=== PATIENT | male | born 1990 | race Hispanic/Latino ===

== ENCOUNTER 2022-02-03 09:13 | Inpatient (IN) | payer BC ==
[2022-02-03 09:54] LABS: Absolute Lymphocytes (CBC) 1.3 K/uL (0.7-4.9); Hematocrit 45.2 % (39.6-49.0); Lymphocytes % 10.9 % (15.3-44.8); MCV 87.7 fL (80-100); MPV 7.5 fL (7.6-11.3); RBC Red Blood Cell Count 5.16 M/uL (4.33-5.43)
[2022-02-03] MEDS ORDERED: MORPHINE 4 MG/ML SYR ONE ×2 (10:02→12:56)
[2022-02-03] MEDS ORDERED: NA CHLORIDE 0.9% 1,000 ML ONE ×2 (10:03→14:52)
[2022-02-03 10:08] LABS: Potassium 3.8 mmol/L (3.5-5.1)
--- NOTE | 2022-02-03 11:04 | RAD REPORT ---
EXAM DESCRIPTION: CT - Pelvis W/Cont - 02/03/2022 10:43 am CLINICAL HISTORY: Perianal abscess COMPARISON: None. TECHNIQUE: Computed axial tomography of the pelvis was obtained. 50 cc Isovue-300 administered intra venously. All CT scans are performed using dose optimization technique as appropriate and may include automated exposure control or mA/KV adjustment according to patient size. FINDINGS: A 3.5 centimeter abscess to the left of the anus. Stranding within the adjacent fat. No ascites. No evidence of diverticulitis. Small left inguinal hernia contains fat IMPRESSION: 3.5 centimeter perianal abscess
[2022-02-03 11:22] LABS: Protime INR 1.19
[2022-02-03] MEDS ORDERED: Levofloxacin 750mg IV 750 MG/150 ML BAG IV ONE (11:28)
[2022-02-03] MEDS ORDERED: METRONIDAZOLE 500mg IVPB 500 MG/100 ML BAG IV ONE (11:28)
--- NOTE | 2022-02-03 11:28 | EDPHYS ---
Physician Documentation [facility] Name: Tera Zuleta Age: 31 yrs Sex: Male : 1990 Arrival Date: 02/03/2022 Time: 09:16 Bed 11 Private MD: ED Physician Linwood Miller HPI: 02/03 11:28 This 31 yrs old Male presents to ER via Ambulatory with complaints of ms3 Hemorrhoids. 11:28 The patient presents to the emergency department with pain in the rectal area, that is ms3 severe. Onset: The symptoms/episode began/occurred 3 day(s) ago. Context: the patient has no known special context relating to the rectal area complaint(s). Modifying factors: The symptoms are alleviated by nothing, The symptoms are aggravated by movement, sitting position. Associate signs and symptoms: Pertinent negatives: fever, vomiting. Historical: - Allergies: 09:30 PENICILLINS; ap3 - PMHx: 09:30 None; ap3 - Immunization history:: Adult Immunizations up to date. - Social history:: Smoking status: Patient denies any tobacco usage or history of. ROS: 11:28 Constitutional: Negative for fever, and chills. Neck: Negative for injury, pain, and ms3 swelling, Cardiovascular: Negative for chest pain, and palpitations. Respiratory: Negative for shortness of breath, cough, wheezing, and pleuritic chest pain, MS/Extremity: Negative for injury and deformity, Neuro: Negative for headache, weakness, numbness, tingling. 11:28 Abdomen/GI: Positive for rectal pain. 11:28 All other systems are negative. Exam: 11:28 Constitutional: This is a well developed, well nourished patient who is awake, alert, ms3 and in no acute distress. Head/Face: Normocephalic, atraumatic. Neck: Trachea midline, no cervical lymphadenopathy. Supple, full range of motion without nuchal rigidity, or vertebral point tenderness. No Meningismus. Chest/axilla: Normal chest wall appearance and motion. Nontender with no deformity. Cardiovascular: Regular rate and rhythm with a normal S1 and S2. No gallops, murmurs, or rubs. Normal PMI, no JVD. No pulse deficits. Respiratory: Lungs have equal breath sounds bilaterally, clear to auscultation and percussion. No rales, rhonchi or wheezes noted. No increased work of breathing, no retractions or nasal flaring. Skin: Warm, dry with normal turgor. Normal color with no rashes, no lesions, and no evidence of cellulitis. MS/ Extremity: Pulses equal, no cyanosis. Neurovascular intact. Full, normal range of motion. Psych: Awake, alert, with orientation to person, place and time. Behavior, mood, and affect are within normal limits. 11:28 Abdomen/GI: Inspection: abdomen appears normal, Bowel sounds: normal, Palpation: abdomen is soft and non-tender, Rectal exam: swelling, that is moderate, tenderness, that is severe, the exam is chaperoned by the nurse, Left sided perianal abscess. 11:38 ECG was reviewed by the Attending Physician. ms3 Vital Signs: 09:26 BP 163 / 103; Pulse 128; Resp 20; Temp 98.8; Pulse Ox 100% ; Weight 158.76 kg; Height 6 ap3 ft. 1 in. (185.42 cm); Pain 8/10; 10:28 BP 123 / 57; Pulse 113; Resp 16; Pulse Ox 95% on R/A; iw 10:33 BP 121 / 63; Pulse 101; Resp 18; Pulse Ox 96% on R/A; ld1 12:24 BP 124 / 70; Pulse 99; Resp 18; Pulse Ox 97% on R/A; ld1 12:52 BP 138 / 98; Pulse 105; Resp 20; Pulse Ox 97% on R/A; em6 14:00 BP 132 / 88; Pulse 99; Resp 20; Pulse Ox 98% on R/A; em6 15:00 BP 128 / 86; Pulse 94; Resp 18; Pulse Ox 98% on R/A; em6 16:00 BP 124 / 82; Pulse 90; Resp 20; Pulse Ox 98% on R/A; em6 09:26 Body Mass Index 46.18 (158.76 kg, 185.42 cm) ap3 MDM: 09:34 Patient medically screened. ms3 11:28 Differential diagnosis: hemorrhoids, abscess. Data reviewed: vital signs, nurses notes, ms3 lab test result(s), radiologic studies, and as a result, I will admit patient. Counseling: I had a detailed discussion with the patient and/or guardian regarding: the historical points, exam findings, and any diagnostic results supporting the discharge/admit diagnosis, lab results, radiology results, the need for further work-up and treatment in the hospital. ED course: Case discussed with Dr. Hurt and he would like patient admitted to medicine. Discussed case with Ben and he accepts patient on behalf of Dr Hurt.. 02/03 09:36 Order name: CBC with Diff; Complete Time: 10:40 ms3 02/03 09:36 Order name: Urine Microscopic Only ms3 02/03 09:36 Order name: BMP; Complete Time: 10:40 ms3 02/03 10:40 Order name: Blood Culture Adult (2) ms3 02/03 10:40 Order name: Lactate w/ 2H reflex if indic.; Complete Time: 11:39 ms3 02/03 10:40 Order name: Protime (+inr); Complete Time: 11:26 ms3 02/03 10:40 Order name: Ptt, Activated; Complete Time: 11:26 ms3 02/03 10:40 Order name: LFT's; Complete Time: 11:39 ms3 02/03 11:18 Order name: SARS RAPID iw 02/03 11:51 Order name: Hemoglobin A1c ld1 02/03 12:30 Order name: Hemoglobin A1c EDMO 02/03 12:31 Order name: Lipid Profile EDMS 02/03 12:32 Order name: T4 Free EDMS 02/03 12:32 Order name: Thyroid Stimulating Hormone EDMS 02/03 09:56 Order name: CT Pelvis w cont; Complete Time: 11:14 ms3 02/03 12:32 Order name: Urinalysis EDMS 02/03 12:32 Order name: Basic Metabolic Panel EDMS 02/03 12:32 Order name: Basic Metabolic Panel EDMS 02/03 12:32 Order name: CBC with Automated Diff EDMS 02/03 12:32 Order name: CBC with Automated Diff EDMS 02/03 13:33 Order name: Urine Dipstick-Ancillary EDMS 02/03 13:49 Order name: Urine Culture EDMS 02/03 14:09 Order name: Vancomycin Level Trough EDMS 02/03 17:03 Order name: Glucose, Ancillary Testing EDMS 02/03 09:36 Order name: IV Saline Lock; Complete Time: 09:47 ms3 02/03 09:36 Order name: Labs collected and sent; Complete Time: 09:47 ms3 02/03 09:36 Order name: Urine Dipstick-Ancillary (obtain specimen); Complete Time: 13:33 ms3 02/03 10:40 Order name: EKG; Complete Time: 10:41 ms3 02/03 10:40 Order name: Accucheck; Complete Time: 11:32 ms3 02/03 10:40 Order name: Cardiac monitoring; Complete Time: 10:45 ms3 02/03 10:40 Order name: EKG - Nurse/Tech; Complete Time: 11:33 ms3 02/03 10:40 Order name: IV Saline Lock - Large Bore; Complete Time: 10:45 ms3 02/03 10:40 Order name: O2 Per Protocol; Complete Time: 10:45 ms3 02/03 10:40 Order name: O2 Sat Monitoring; Complete Time: 10:45 ms3 02/03 10:40 Order name: Vital Signs; Complete Time: 10:44 ms3 02/03 11:26 Order name: NPO; Complete Time: 11:34 ms3 02/03 12:14 Order name: NPO; Complete Time: 12:21 EDMS EC:38 Rate is 109 beats/min. Rhythm is regular. QRS [place] is Normal. MS interval is normal. ms3 QRS interval is normal. Clinical impression: Sinus tachycardia. Interpreted by me. Reviewed by me. Administered Medications: 10:11 Drug: morphine 4 mg Route: IVP; Infused Over: 4 mins; Site: right antecubital; ld1 10:11 Drug: NS 0.9% 1000 ml Route: IV; Rate: 1000 ml; Site: right antecubital; ld1 12:00 Follow up: IV Status: Completed infusion; IV Intake: 1000ml em6 11:38 Drug: Flagyl (metroNIDAZOLE) 500 mg Volume: 100 ml; Route: IVPB; Rate: 200 ml/hr; ld1 Infused Over: 30 mins; Site: left antecubital; 12:45 Follow up: Response: No adverse reaction; IV Status: Completed infusion; IV Intake: em6 100ml 11:38 Drug: LevaQUIN (levofloxacin) 750 mg Volume: 150 ml; Route: IVPB; Infused Over: 90 ld1 mins; Site: right antecubital; 13:10 Follow up: Response: No adverse reaction; IV Status: Completed infusion; IV Intake: em6 150ml 12:56 Drug: morphine 4 mg Route: IVP; Infused Over: 4 mins; Site: left antecubital; em6 13:22 Follow up: Response: No adverse reaction; RASS: Alert and Calm (0) em6 Disposition Summary: 02/03/22 11:27 Hospitalization Ordered Hospitalization Status: Inpatient Admission ms3 Provider: Grace Way ms3 [facility] ms3 Condition: Stable ms3 Problem: new ms3 Symptoms: are unchanged ms3 Bed/Room Type: Standard ms3 Room Assignment: 428(02/03/22 19:17) cg Diagnosis - Perianal abscess ms3 - Sepsis without end organ dysfunction ms3 - Hyperglycemia, unspecified ms3 Forms: - Medication Reconciliation Form ms3 - SBAR form ms3 Signatures: Dispatcher [employer] EDAna Jeronimo RN RN cg Telma Rodriguez RN RN ap3 Linwood Miller DO DO ms3 Jessica Jenkins RN RN ld1 Deena Richard RN RN em6 Corrections: (The following items were deleted from the chart) 14:31 12:48 Vancomycin Level Trough ordered. EDMS EDMS 19:17 11:27 ms3 cg
--- NOTE | 2022-02-03 11:28 | ER ---
Nurse's Notes [facility] Name: Tera Zuleta Age: 31 yrs Sex: Male : 1990 Arrival Date: 02/03/2022 Time: 09:16 Bed 11 Private MD: Diagnosis: Perianal abscess;Sepsis without end organ dysfunction;Hyperglycemia, unspecified Presentation: 02/03 09:26 Chief complaint: Patient states: hemorrhoids worse the last couple days. Coronavirus ap3 screen: Vaccine status: Patient reports receiving the 2nd dose of the covid vaccine. Ebola Screen: Patient negative for fever greater than or equal to 101.5 degrees Fahrenheit, and additional compatible Ebola Virus Disease symptoms Patient denies exposure to infectious person. Patient denies travel to an Ebola-affected area in the 21 days before illness onset. Initial Sepsis Screen: Does the patient meet any 2 criteria? HR > 90 bpm. Does the patient have a suspected source of infection? No. Patient's initial sepsis screen is negative. Risk Assessment: Do you want to hurt yourself or someone else? Patient reports no desire to harm self or others. Onset of symptoms was January 31, 2022. 09:26 Method Of Arrival: Ambulatory ap3 09:26 Acuity: VIGNESH 3 ap3 Triage Assessment: 09:30 General: Appears uncomfortable, obese, well groomed, Behavior is calm, cooperative, ap3 appropriate for age. Pain: Complains of pain in buttocks. Historical: - Allergies: 09:30 PENICILLINS; ap3 - PMHx: 09:30 None; ap3 - Immunization history:: Adult Immunizations up to date. - Social history:: Smoking status: Patient denies any tobacco usage or history of. Screenin:33 Abuse screen: Denies threats or abuse. Denies injuries from another. Nutritional ld1 screening: No deficits noted. Tuberculosis screening: No symptoms or risk factors identified. Fall Risk Assessment: 10:33 Reassessment: See triage assessment. ld1 12:24 Reassessment: Patient appears in no apparent distress at this time. No changes from ld1 previously documented assessment. Patient and/or family updated on plan of care and expected duration. Pain level reassessed. Patient is alert, oriented x 3, equal unlabored respirations, skin warm/dry/pink. 12:52 Reassessment: provider notified of pain. see mar for orders. Pain: Complains of pain in em6 buttocks Pain currently is 9 out of 10 on a pain scale. Neuro: Palmer Agitation-Sedation Scale (RASS): 0 - Alert and Calm Level of Consciousness is awake, alert, obeys commands, Oriented to person, place, time, situation. 14:00 Reassessment: Patient appears in no apparent distress at this time. No changes from em6 previously documented assessment. Patient and/or family updated on plan of care and expected duration. Pain level reassessed. Patient is alert, oriented x 3, equal unlabored respirations, skin warm/dry/pink. 15:00 Reassessment: Patient appears in no apparent distress at this time. No changes from em6 previously documented assessment. Patient and/or family updated on plan of care and expected duration. Pain level reassessed. Patient is alert, oriented x 3, equal unlabored respirations, skin warm/dry/pink. 16:00 Reassessment: Patient appears in no apparent distress at this time. No changes from em6 previously documented assessment. Patient and/or family updated on plan of care and expected duration. Pain level reassessed. Patient is alert, oriented x 3, equal unlabored respirations, skin warm/dry/pink. will start [facility] charting. Vital Signs: 09:26 BP 163 / 103; Pulse 128; Resp 20; Temp 98.8; Pulse Ox 100% ; Weight 158.76 kg; Height 6 ap3 ft. 1 in. (185.42 cm); Pain 8/10; 10:28 BP 123 / 57; Pulse 113; Resp 16; Pulse Ox 95% on R/A; iw 10:33 BP 121 / 63; Pulse 101; Resp 18; Pulse Ox 96% on R/A; ld1 12:24 BP 124 / 70; Pulse 99; Resp 18; Pulse Ox 97% on R/A; ld1 12:52 BP 138 / 98; Pulse 105; Resp 20; Pulse Ox 97% on R/A; em6 14:00 BP 132 / 88; Pulse 99; Resp 20; Pulse Ox 98% on R/A; em6 15:00 BP 128 / 86; Pulse 94; Resp 18; Pulse Ox 98% on R/A; em6 16:00 BP 124 / 82; Pulse 90; Resp 20; Pulse Ox 98% on R/A; em6 09:26 Body Mass Index 46.18 (158.76 kg, 185.42 cm) ap3 ED Course: 09:16 Patient arrived in ED. rg4 09:18 Linwood Miller DO is Attending Physician. ms3 09:30 Triage completed. ap3 09:30 Arm band placed on right wrist. ap3 09:47 Inserted saline lock: 20 gauge in right antecubital area, using aseptic technique. jd3 Blood collected. 09:50 Mariaa Jackson, RN is Primary Nurse. iw 10:33 Patient has correct armband on for positive identification. Placed in gown. Bed in low ld1 position. Call light in reach. Side rails up X2. color television console monitor on. Pulse ox on. NIBP on. Door closed. Noise minimized. Warm blanket given. 10:33 No provider procedures requiring assistance completed. ld1 10:45 CT Pelvis w cont In Process Unspecified. EDMS 11:[address] MD is Hospitalizing Provider. ms3 11:32 SARS RAPID Sent. iw 12:21 Inserted saline lock: 22 gauge in left antecubital area, using aseptic technique. Blood em6 collected. 12:21 Hemoglobin A1c Sent. em6 12:30 Hemoglobin A1c Sent. em6 13:33 Urine Microscopic Only Sent. em6 19:09 Primary Nurse role handed off by Mariaa Jackson, SAMMI mw2 19:30 Deena Richard, SAMMI is Primary Nurse. em6 Administered Medications: 10:11 Drug: morphine 4 mg Route: IVP; Infused Over: 4 mins; Site: right antecubital; ld1 10:11 Drug: NS 0.9% 1000 ml Route: IV; Rate: 1000 ml; Site: right antecubital; ld1 12:00 Follow up: IV Status: Completed infusion; IV Intake: 1000ml em6 11:38 Drug: Flagyl (metroNIDAZOLE) 500 mg Volume: 100 ml; Route: IVPB; Rate: 200 ml/hr; ld1 Infused Over: 30 mins; Site: left antecubital; 12:45 Follow up: Response: No adverse reaction; IV Status: Completed infusion; IV Intake: em6 100ml 11:38 Drug: LevaQUIN (levofloxacin) 750 mg Volume: 150 ml; Route: IVPB; Infused Over: 90 ld1 mins; Site: right antecubital; 13:10 Follow up: Response: No adverse reaction; IV Status: Completed infusion; IV Intake: em6 150ml 12:56 Drug: morphine 4 mg Route: IVP; Infused Over: 4 mins; Site: left antecubital; em6 13:22 Follow up: Response: No adverse reaction; RASS: Alert and Calm (0) em6 Medication: 10:33 VIS not applicable for this client. ld1 Intake: 12:00 IV: 1000ml; Total: 1000ml. em6 12:45 IV: 100ml; Total: 1100ml. em6 13:10 IV: 150ml; Total: 1250ml. em6 Outcome: 11:27 Decision to Hospitalize by Provider. ms3 19:50 Patient left the ED. ll3 Signatures: Dispatcher [employer] EDMS Mariaa Jackson, RN Dee Lino rg4 Elliot Wheatley RN RN jd3 Telma Rodriguez RN RN [email or web address] Markus Kumar mw2 Linwood Miller, DO DO ms3 Jessica Jenkins RN RN ld1 Maria Del Carmen Leong RN RN ll3 Deena Richard RN RN em6
[2022-02-03 11:34] LABS: Albumin 3.4 g/dL (3.4-5.0); Bilirubin Direct 0.2 mg/dL (0-0.2); Bilirubin Total 0.8 mg/dL (0.2-1.0); Protein, Total 8.2 g/dL (6.4-8.2)
[2022-02-03 11:55] LABS: SARS-CoV-2 Antigen Rapid Res Negative (Negative)
[2022-02-03] MEDS ORDERED: ACETAMINOPHEN 325 MG TABLET PO PRN (12:11)
[2022-02-03] MEDS: NA CHLORIDE 0.9% 1,000 ML IV SCH (13:00)
[2022-02-03 13:14] LABS: Thyroid Stimulating Hormone 2.57 uIU/mL (0.358-3.740)
[2022-02-03 13:32] LABS: Urine Blood 1+ (Negative); Urine Glucose 2+ (Negative); Urine Protein 1+ (Negative); Urine Specific Gravity 1.015 (1.005-1.030); Urine pH 5.5 (5.0-7.0)
[2022-02-03] MEDS ORDERED: VANCOMYCIN 3 GM in NA CHLORIDE 0.9% 500 ML IVPB ONE (15:00)
--- NOTE | 2022-02-03 15:16 | P.HP ---
Certification for Inpatient Patient admitted to: Inpatient With expected LOS: >2 Midnights Patient will require the following post-hospital care: None Practitioner: I am a practitioner with admitting privileges, knowledge of patient current condition, hospital course, and medical plan of care. Services: Services provided to patient in accordance with Admission requirements found in Title 42 Section 412.3 of the Code of Federal Regulations Patient History Date of Service: 02/03/22 Reason for admission: Perianal abscess History of Present Illness: Patient is a 31-year-old male with a past medical history significant for morbid obesity who presents with complaint of pain in the right buttocks in between the intergluteal cleft. Patient reported that he initially thought he was having hemorrhoid. Pain became worse over time and when patient's looked at site of pain today, she noticed swelling and hardness in affected area. Patient rated pain as 8/10 in severity and described pain as aching in quality. Patient reported associated signs and symptoms of diaphoresis, subjective fever and nausea. Patient denies any other signs and symptoms. Symptoms are aggravated by lying on the buttocks and relieved by nothing. Patient decided to present to the hospital due to worsening symptoms. Allergies Penicillins Adverse Reaction (Intermediate, Verified 07/31/11 17:20) Rash - Past Medical/Surgical History -: Obesity Past Surgical History: Reviewed- Non-Contributory - Social History Smoking Status: Former smoker Counseled patient to stop smoking for: less than 10 minutes Smoking therapy provided: No Patient receptive to therapy: No Alcohol use: Yes CD- Drugs: No Caffeine use: Yes Place of Residence: Home Review of Systems General: Sweats, Other (Subjective fever) Eyes: Unremarkable ENT: Unremarkable Respiratory: Unremarkable Cardiovascular: Unremarkable Gastrointestinal: Nausea, Other (Abscess in the intergluteal area) Genitourinary: Unremarkable Musculoskeletal: Unremarkable Integumentary: Other (Intergluteal area abscess.) Neurological: Unremarkable Lymphatics: Unremarkable Physical Examination - Physical Exam General: Alert, In no apparent distress, Oriented x3, Mild distress HEENT: Atraumatic, PERRLA, Mucous membr. moist/pink, EOMI, Sclerae nonicteric Neck: Supple, 2+ carotid pulse no bruit, No LAD, Without JVD or thyroid abnormality Respiratory: Clear to auscultation bilaterally, Normal air movement Cardiovascular: No edema, Regular rate/rhythm, Normal S1 S2 Capillary refill: <2 Seconds Gastrointestinal: Normal bowel sounds, Tenderness (In the intergluteal area) Musculoskeletal: No tenderness, Swelling Integumentary: No rashes, No breakdown, No significant lesion, Tenderness/swelling Neurological: Normal gait, Normal speech, Normal tone, Normal affect Lymphatics: No axilla or inguinal lymphadenopathy - Studies Laboratory Data (last 24 hrs) 02/03/22 11:05: Total Bilirubin 0.8, AST 22, ALT 50, Alkaline Phosphatase 136 H 02/03/22 11:05: PT 13.1 H, INR 1.19, APTT 31.7 02/03/22 09:44: Sodium 133 L, Potassium 3.8, BUN 11, Creatinine 0.77, Glucose 314 H 02/03/22 09:44: WBC 12.20 H, Hgb 15.5, Hct 45.2, Plt Count 360 Assessment and Plan - Plan --Perianal abscess. Noted on imaging. Surgeon consulted. Blood cultures pending. Continue antibiotics. Will await further recommendation from surgeon. --Sepsis POA. Blood cultures pending. Continue antibiotics. --Acute pain. We will manage pain with current pain medication regimen. --New onset DM2. Hemoglobin A1c is 11.8. BS monitoring with sliding scale insulin. Diabetic education consult initiated. --Class III obesity. Likely secondary to excess calories intake. Patient counseled on weight reduction, diet and exercise therapy. --Nausea. Antiemetics on board. --Leukocytosis. Blood cultures pending. Continue antibiotics. --UTI POA. Continue antibiotics. --DVT prophylaxis with SCDs. Discharge Plan: Home Plan to discharge in: 48 Hours - Advance Directives Does patient have a Living Will: No Does patient have a Durable POA for Healthcare: No - Code Status/Comfort Care Code Status Assessed: Yes Physician Review: Patient Assessed, Agree with Above Assessment and Plan Critical Care: No
[2022-02-03 15:33] VITALS: BMI 46.1
[2022-02-03] MEDS: INSULIN -REGULAR HUMAN 50 UNIT/0.5 ML ML SQ SCH ×2 (16:30→21:15)
[2022-02-03] MEDS ORDERED: INSULIN -REGULAR HUMAN 50 UNIT/0.5 ML ML ONE (16:56)
[2022-02-03] MEDS: CEFEPIME 1 GM in NA CHLORIDE 0.9% 100 ML IV SCH (17:00)
[2022-02-03] MEDS ORDERED: INFLUENZA VACCINE (for 6+ mo) 0.5 ML DOSE IMVAC ONE (18:00)
[2022-02-03] MEDS ORDERED: DOCUSATE NA 100 MG CAP PO ONE (18:04)
[2022-02-03] MEDS ORDERED: CEFEPIME 1 GM/VIAL ONE (18:11)
[2022-02-03] MEDS ORDERED: NA CHLORIDE 0.9% 100 ML IV ONE (18:11)
--- NOTE | 2022-02-03 18:38 | CON ---
Date of Consultation: 02/03/2022 Brief History Of Present Illness: The patient is a 31-year-old male with past medical history of mor bid obesity who presents with complaints of perirectal pain in the right buttock area and intraglutea l cleft. He states he thought it was related to hemorrhoid and has had pain somewhat similar in the past, but never to this level of intensity. He noted that over several days, prior to his presentati on, the area got significantly more red, tender, and inflamed and the pain became unbearable as such he came to the emergency room with the above-stated complaints. He denies any other issues at this t beto. Past Medical History: Significant for obesity. Past Surgical History: Denies. Allergies: TO PENICILLIN, WHICH CAUSES A RASH. Social History: He stopped smoking cigarettes 4 years ago. Denies alcohol or recreational drug use. Home Medications: None. Review of Systems: A 10-point review of systems other than HPI, denied. Physical Examination: General: He is awake, alert, oriented. Psychiatrically appropriate, conversive. He is morbidly obe se with a BMI of 46. Neck: Supple without JVD. Chest: Normal expansion and excursion. Cardiovascular: Regular rate and rhythm. Pulmonary: Clear to auscultation bilaterally. HEENT: Normocephalic, atraumatic. Sclerae were anicteric. Mucous membranes moist. Oropharynx trina r. Abdomen: Soft, nontender, and nondistended. No rebound. No guarding. No focal peritonitis. Perianal: He has tenderness on the right buttock area consistent with a perirectal abscess. No drai nage at this point. There is surrounding cellulitis. Extremities: No clubbing, cyanosis, or edema. Skin: Warm and dry. Laboratory Data: White blood count 12.2, hemoglobin was 15.5, hematocrit 45.2, platelet count was 36 0, and neutrophils are 79%. PT 11.3, INR 1.19. Chemistry: Sodium 133, potassium 3.8, chloride 98, carbon dioxide 25, BUN 11, creatinine 0.7, and glucose is 314. Hemoglobin A1c was 11.8. Lactic acid 1.6. Alkaline phosphatase 136. He had a UA, which showed 2+ glucose, ketones 4+, red blood cells, white blood cells, and negative leukocyte esterase. The remaining is pending. COVID was negative. He had a CT of the pelvis on 02/03/2022, officially read as 3.5 cm perianal abscess. Assessment And Plan: This is a 31-year-old male who comes in with signs and symptoms of perianal abs cess. 1.IV fluid hydration. 2.Antibiotic coverage. 3.Pain management. 4.Continue medical management per Primary Team. 5.I explained risks, benefits, and alternatives of exam under anesthesia and drainage of perianal/pe rirectal abscess, including but not limited to bleeding, infection, damage to surrounding tissues, ne ed for further operation/procedures, or incontinence tissues. The patient agrees to proceed as indic ated. TK/MODL Voice ID: [id number] Report ID: [id number]
[2022-02-03] MEDS: DOCUSATE NA 100 MG CAP PO SCH (21:15)
[2022-02-04] MEDS: CEFEPIME 1 GM in NA CHLORIDE 0.9% 100 ML IV SCH ×3 (00:43→17:17)
[2022-02-04] MEDS: MORPHINE 4 MG/ML SYR IV PRN ×3 (01:10→21:01)
[2022-02-04] MEDS ORDERED: VANCOMYCIN 2 GM in NA CHLORIDE 0.9% 500 ML IVPB SCH (03:00)
[2022-02-04 04:02] LABS: Absolute Lymphocytes (CBC) 1.7 K/uL (0.7-4.9); Lymphocytes % 14.3 % (15.3-44.8); MCV 87.6 fL (80-100); MPV 7.7 fL (7.6-11.3); RBC Red Blood Cell Count 4.57 M/uL (4.33-5.43)
[2022-02-04 04:19] LABS: Potassium 3.4 mmol/L (3.5-5.1)
[2022-02-04] MEDS: INSULIN -REGULAR HUMAN 50 UNIT/0.5 ML ML SQ SCH ×4 (08:24→21:00)
[2022-02-04] MEDS: NA CHLORIDE 0.9% 1,000 ML IV SCH ×2 (08:25→15:08)
[2022-02-04] MEDS: DOCUSATE NA 100 MG CAP PO SCH ×2 (08:25→21:01)
[2022-02-04] MEDS ORDERED: NA CHLORIDE 0.9% 1,000 ML ONE (10:07)
[2022-02-04] MEDS ORDERED: BUPIVACAINE 0.25% PF 10 ML VIAL ONE (10:38)
[2022-02-04] MEDS ORDERED: propofoL 200 MG/20 ML VIAL IV ONE (10:52)
[2022-02-04] MEDS ORDERED: KETAMINE HCL 500 MG/5 ML VIAL ONE (10:52)
[2022-02-04] MEDS ORDERED: FENTANYL CITR 100 MCG/2 ML ONE (10:52)
[2022-02-04] MEDS ORDERED: dexAMETHasone 10 MG/ML VIAL ONE (10:52)
[2022-02-04] MEDS ORDERED: MIDAZOLAM HCL 2 MG/2 ML INJ ONE (10:52)
[2022-02-04] MEDS ORDERED: KETOROLAC 30 MG/ML INJ ONE (10:53)
[2022-02-04] MEDS ORDERED: LIDOCAINE 2% MPF 5 ML VIAL ONE (10:53)
[2022-02-04] MEDS ORDERED: ONDANSETRON 4 MG/2 ML VIAL ONE (10:54)
--- NOTE | 2022-02-04 12:08 | P.OP ---
Preoperative diagnosis: Perianal Abscess Postoperative diagnosis: Perianal Abscess with Fistula Primary procedure: Exam under anesthesia Secondary procedure: Excisional Debridement of Perianal Abscess Other procedure(s): Placement of Seton Anesthesia: GETA + Local Estimated blood loss: <20cc Specimen: cultures Findings: perianal fistula LEFT buttock to LEFT rectum Complications: None Drain(s): Other (Seton) Transferred to: Recovery Room Condition: Good
--- NOTE | 2022-02-04 12:51 | OP ---
Date of Procedure: 02/04/2022 Surgeon: Chris Hurt MD, Preoperative Diagnosis: Perineal abscess. Postoperative Diagnosis: Perianal abscess with fistula. Procedures: 1.Exam under anesthesia. 2.Excisional debridement of perianal abscess. 3.Placement of a seton. Anesthesia: General endotracheal local with 0.25% Marcaine. Estimated Blood Loss: Less than 20 cc. Specimen: Cultures both aerobic and anaerobic speciation, debridement tissue. 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 Complications: None. Drains: A red rubber seton. Disposition: The patient was transferred to the recovery room in good condition. Procedure In Detail: After informed consent was obtained, the patient was brought to the operating r oom, prepped and draped in the usual sterile fashion after adequate anesthesia was achieved. An anos cope was placed into the anal canal and I then saw pus emanating from the anorectal wall on the right side in a linear fashion from the rectal wall toward the perianal abscess, which also was emanating abscess material. I then passed a probe through this easily, attached a red rubber vessel loop, and then placed it through the fistula at this point. I then opened the abscess of the buttock area and cultured for both aerobic and anaerobic speciation. I irrigated the area copiously, debrided all nec rotic tissue, digitized the area and found to be multiloculated extending up to the rectal wall. Aft er I digitized the area, I then irrigated it once again and then packed the wound with a 0.5 inch pac raul with Vashe solution, damp to dry and there placed a Gelfoam pack into the rectum. I then secure d the seton using 2-0 silk ties and a sterile dressing placed over top. The patient tolerated the pr ocedure well without evidence of complication and transferred to PACU in good condition. All counts were correct at the end of the case. TK/MODL Voice ID: [id number] Report ID: [id number]
--- NOTE | 2022-02-04 13:24 | P.PN ---
Subjective Date of Service: 02/04/22 Subjective: No new changes, No C/O voiced, Improving Review of Systems 10-point ROS is otherwise unremarkable Physical Examination - Vital Signs Temperature: 98.7 F Blood Pressure: 125/77 Pulse: 102 Respirations: 16 Pulse Ox (%): 94 - Physical Exam General: Alert, In no apparent distress, Oriented x3 HEENT: Atraumatic, PERRLA, EOMI Neck: Supple, JVD not distended Respiratory: Clear to auscultation bilaterally, Normal air movement Cardiovascular: Regular rate/rhythm, Normal S1 S2 Gastrointestinal: Normal bowel sounds, No tenderness Musculoskeletal: No tenderness Integumentary: No rashes Neurological: Normal speech, Normal tone, Normal affect Lymphatics: No axilla or inguinal lymphadenopathy - Studies Medications List Reviewed: Yes Assessment & Plan - Problems (Diagnosis) (1) Perirectal abscess Current Visit: Yes Status: Acute (2) Newly diagnosed diabetes Current Visit: Yes Status: Acute - Plan Plan: 1. Continue with IV antibiotics 2. Pain control 3. Surgical follow-up 4. Outpatient colonoscopy 5. GI and DVT prophylaxis - Advance Directives Does patient have a Living Will: No Does patient have a Durable POA for Healthcare: No Physician Review: Patient Assessed, Agree with Above Assessment and Plan
[2022-02-04] MEDS: METRONIDAZOLE 500mg IVPB 500 MG/100 ML BAG IV SCH ×2 (13:45→22:20)
--- NOTE | 2022-02-04 14:37 | EKG ---
Test Date: 2022-02-03 Test Time: 11:28:54 Tobacco Baler: HANNA MEASUREMENT RESULTS: Intervals: Rate: 109 WV: 148 QRSD: 90 QT: 348 QTc: 468 [place]: P: 79 WV: 148 QRS: 70 T: 54 INTERPRETIVE STATEMENTS: Sinus tachycardia Otherwise normal ECG No previous ECG available for comparison Electronically Signed On 02-04-22 14:34:48 [employer] by Chucho Bright
[2022-02-04] MEDS: VANCOMYCIN 2 GM in NA CHLORIDE 0.9% 500 ML IVPB SCH (15:08)
[2022-02-04] MEDS: glipiZIDE 5 MG TAB PO SCH (17:18)
[2022-02-04] MEDS: METFORMIN HCL 500 MG TAB PO SCH (17:18)
[2022-02-05 00:45] VITALS: O2SAT 97
[2022-02-05] MEDS: CEFEPIME 1 GM in NA CHLORIDE 0.9% 100 ML IV SCH ×2 (01:03→08:06)
[2022-02-05] MEDS: VANCOMYCIN 2 GM in NA CHLORIDE 0.9% 500 ML IVPB SCH (03:00)
[2022-02-05] MEDS: NA CHLORIDE 0.9% 1,000 ML IV SCH (04:05)
[2022-02-05] MEDS: METRONIDAZOLE 500mg IVPB 500 MG/100 ML BAG IV SCH ×2 (05:32→14:00)
[2022-02-05] MEDS: METFORMIN HCL 500 MG TAB PO SCH (08:06)
[2022-02-05] MEDS: DOCUSATE NA 100 MG CAP PO SCH (08:06)
[2022-02-05] MEDS: glipiZIDE 5 MG TAB PO SCH (08:06)
[2022-02-05] MEDS: INSULIN -REGULAR HUMAN 50 UNIT/0.5 ML ML SQ SCH ×2 (08:07→11:30)
[2022-02-05] MEDS ORDERED: CEFEPIME 2 GM in NA CHLORIDE 0.9% 100 ML IV SCH ×2 (09:00→17:00)
[2022-02-05] MEDS ORDERED: VANCOMYCIN 2 GM in NA CHLORIDE 0.9% 500 ML IVPB SCH (09:00)
[2022-02-05 09:10] LABS: Absolute Lymphocytes (CBC) 1.3 K/uL (0.7-4.9); Hematocrit 37.9 % (39.6-49.0); Lymphocytes % 13.6 % (15.3-44.8); MCV 88.1 fL (80-100); MPV 7.1 fL (7.6-11.3)
[2022-02-05] MEDS ORDERED: CEFEPIME 1 GM in NA CHLORIDE 0.9% 100 ML IV ONE (09:30)
[2022-02-05] MEDS: MORPHINE 4 MG/ML SYR IV PRN ×2 (11:26→14:26)
[2022-02-16 01:53] VITALS: BP 125/77; TEMP 98.7
--- NOTE | 2022-02-16 01:54 | P.DS ---
Discharge Date: 02/05/22 Disposition: ROUTINE DISCHARGE Discharge Condition: GOOD Reason for Admission: Perianal abscess Consultations: General surgeon - Problems (1) Perirectal abscess Status: Acute (2) Newly diagnosed diabetes Status: Acute Brief History of Present Illness: Patient is a 31-year-old male with a past medical history significant for morbid obesity who presents with complaint of pain in the right buttocks in between the intergluteal cleft. Patient reported that he initially thought he was having hemorrhoid. Pain became worse over time and when patient's looked at site of pain today, she noticed swelling and hardness in affected area. Patient rated pain as 8/10 in severity and described pain as aching in quality. Patient reported associated signs and symptoms of diaphoresis, subjective fever and nausea. Patient denies any other signs and symptoms. Symptoms are aggravated by lying on the buttocks and relieved by nothing. Patient decided to present to the hospital due to worsening symptoms. Hospital Course: patient had 2 vision and debridement of the rectal abscess. Will continue with home health and wound care at discharge. Patient is stable for follow-up as an outpatient. Continue with antibiotics for 2 more weeks. Vital Signs/Physical Exam: Temp Pulse Resp BP Pulse Ox 98.7 F 102 H 16 125/77 94 02/16/22 01:53 02/16/22 01:53 02/16/22 01:53 02/16/22 01:53 02/16/22 01:53 General: Alert, In no apparent distress, Oriented x3 Laboratory Data at Discharge: WBC 9.90 K/uL (4.3-10.9) 02/05/22 08:57 Hgb 13.0 g/dL (13.6-17.9) L 02/05/22 08:57 Hct 37.9 % (39.6-49.0) L 02/05/22 08:57 Plt Count 362 K/uL (152-406) 02/05/22 08:57 PT 13.1 SECONDS (9.5-12.5) H 02/03/22 11:05 INR 1.19 02/03/22 11:05 APTT 31.7 SECONDS (24.3-36.9) 02/03/22 11:05 Sodium 134 mmol/L (136-145) L 02/04/22 03:03 Potassium 3.4 mmol/L (3.5-5.1) L 02/04/22 03:03 BUN 8 mg/dL (7-18) 02/04/22 03:03 Creatinine 0.59 mg/dL (0.70-1.30) L 02/04/22 03:03 Glucose 227 mg/dL (74-106) H 02/04/22 03:03 Total Bilirubin 0.8 mg/dL (0.2-1.0) 02/03/22 11:05 AST 22 U/L (15-37) 02/03/22 11:05 ALT 50 U/L (16-61) 02/03/22 11:05 Alkaline Phosphatase 136 U/L (45-117) H 02/03/22 11:05 Triglycerides 220 mg/dL (<150) H 02/04/22 03:03 Cholesterol 151 mg/dL (<200) 02/04/22 03:03 HDL Cholesterol 38 mg/dL (40-60) L 02/04/22 03:03 Cholesterol/HDL Ratio 3.97 02/04/22 03:03 Home Medications: Hydrocodone 10/APAP 325 [[place] 10/325] 1 tab PO Q6H PRN #20 tab 02/05/22 Metformin HCl [Glucophage*] 500 mg PO BIDWM #60 tab 02/05/22 glipiZIDE [Glucotrol*] 5 mg PO BIDWM #60 tab 02/05/22 Metronidazole 500 mg PO Q8H #30 tab 02/08/22 levoFLOXacin [Levaquin] 500 mg PO DAILY #10 tab 02/08/22 metroNIDAZOLE [Flagyl] 500 mg PO Q8H #30 tab 02/08/22 New Medications: metroNIDAZOLE [Flagyl] 500 mg PO Q8H #30 tab Metformin HCl [Glucophage*] 500 mg PO BIDWM #60 tab glipiZIDE [Glucotrol*] 5 mg PO BIDWM #60 tab levoFLOXacin [Levaquin] 500 mg PO DAILY #10 tab Metronidazole 500 mg PO Q8H #30 tab Hydrocodone 10/APAP 325 [[place] 10/325] 1 tab PO Q6H PRN #20 tab PRN Reason: Pain Physician Discharge Instructions: OK TO DC IV AND DC HOME ONCE WOUND CARE COMPLETED AND PT KNOWS HOW TO DO DRESSING CHANGES FOLLOW-UP WITH PRIMARY CARE PROVIDER IN 1-2 WEEKS FOLLOW-UP WITH SURGERY IN 1-2 WEEKS RETURN TO THE ER IF symptoms worsens CALL DR. ASHTON AT [phone] IF ANY QUESTIONS REGARDING HOSPITAL STAY. PLEASE CALL THE FLOOR AT [phone] IF ANY MEDICATION OR NURSING QUESTIONS. Diet: Regular Activity: No lifting more than 10 lbs Followup: Chris Hurt MD [ACTIVE - CAN ADMIT] - 1-2 Weeks Time spent managing pt's care (in minutes): 35
== END 2022-02-05 15:15 | disposition home or self-care (01) | DRG 854 ==
LOC: ER 09:13 → ERHOLD 14:37 → 4TH 19:36
PROVIDERS: ADMIT Nurse Practitioner Family; ATTEND Hospitalist
PROC: 0JB90ZZ Excision of Buttock Subcutaneous Tissue and Fascia, Open Approach (ICD-10-PCS; principal; 2022-02-04 11:00)
DX: A41.9 Sepsis, unspecified organism (principal); K61.0 Anal abscess; Z68.42 Body mass index [BMI] 45.0-49.9, adult; N39.0 Urinary tract infection, site not specified; K61.1 Rectal abscess; E66.01 Morbid (severe) obesity due to excess calories; E11.65 Type 2 diabetes mellitus with hyperglycemia; Z88.0 Allergy status to penicillin; Z87.891 Personal history of nicotine dependence; Z20.822 Contact with and (suspected) exposure to COVID-19
CPT/HCPCS: 36415; 72193; 80048; 80061; 80076; 80202; 81003; 81015; 82947; 83036; 83605; 84439; 84443; 85025; 85610; 85730; 87040; 87070; 87075; 87077; 87086; 87088; 87186; 87205; 87811; 93005; 99284; J0692; J1100; J1815; J2001; J2250; J2405; J2704; J3010; J3370; J7030; J7040; Q9966